=== PATIENT | male | born 1945 | race Caucasian/White ===

== ENCOUNTER 2024-09-10 14:42 | Outpatient (CLI) | payer MEDICARE, OTHER, SELFPAY ==
--- NOTE | 2024-09-10 15:00 | CRLHL7_ITS ---
For Patients: As a result of the Century Cures Act, medical imaging exams and procedure reports are released immediately into your electronic medical record. You may view this report before your referring provider. If you have questions, please contact your health care provider. INDICATION: Abnormal lesion at S1 as seen on MRI. Followup. COMPARISON: 08/30/2024. TECHNIQUE: Noncontrast CT lumbar spine. FINDINGS: Stable grade 1 anterolisthesis of L4 on L5 measures approximately 6 mm. Otherwise, normal alignment. No fractures. No vertebral body loss of height. No acute fractures. No vertebral body loss of height. No fractures visualized lower ribs. No sacral fractures. There is a poorly defined lucent lesion of the S1 sacral segment which correlates with the abnormal signal intensity lesion as seen on MRI. On the current exam, there is notable loss of the posterior cortex of S1. When compared to the previous MRI, there is apparent soft tissue component which appears to extend partially into the ventral epidural space. Overall, neoplasm/metastasis cannot be excluded. No other osseous lesions. T12-L1, L1-2: No spinal canal or neural foraminal narrowing. L2-3: Disc degeneration loss disc height. Diffuse disc bulge and endplate osteophytic ridging. Moderate narrowing of spinal canal. Mild narrowing of bilateral foramina. L3-4: Posterior disc bulge. Moderate narrowing of spinal canal. Mild narrowing of bilateral foramina. Most arthropathy. L4-5: Grade 1 anterolisthesis. Disc degeneration. Vacuum disc. Unroofed posted disc bulge. Severe narrowing of spinal canal. Oblique orientation about neural foramina with moderate to severe right and mild left neural foraminal narrowing. Severe facet arthropathy. L5-S1: Disc degeneration loss disc height. Vacuum disc. Diffuse disc bulge and endplate osteophytic ridging. No narrowing of spinal canal. No impingement of the traversing S1 nerve roots. Mild narrowing of bilateral foramina. Mild facet arthropathy. Degenerative changes of the SI joints. Scattered vascular calcifications. IMPRESSION: 1. Stable grade 1 anterolisthesis of L4 on L5. Otherwise normal alignment. No fractures. 2. Poorly defined lytic lucent lesion of the S1 sacral segment which correlates with the abnormal MRI findings. Notable loss of the posterior cortex of S1. On the previous MRI, there is a soft tissue component which appears to extend into the ventral epidural space. Overall, findings concerning for neoplasm/metastasis. Follow-up with MRI with IV gadolinium to complement the previous noncontrast MRI is recommended. 3. Lumbar spondylosis 4. Moderate narrowing of the spinal canal at the L2-3 and L3-4. 5. At L4-5, severe narrowing of the spinal canal. Moderate severe right neural foraminal narrowing. 6. At L5-S1, mild narrowing of the bilateral neural foramina Please note that all CT scans at this facility use dose modulation, iterative reconstruction, and/or weight-based dosing when appropriate to reduce radiation dose to as low as reasonably achievable. Dictated by Kevan Piedra MD @ 09/11/2024 3:50:33 PM (Electronically Signed)
--- OUTSIDE RECORDS SUMMARY | 2024-09-10 15:21 | XMS_ITS | Continuity of Care Document ---
Author Name [facility] Organization [facility] Care Team Providers Care Cad Detailer Name Role Phone [facility] Unavailable Unavailable Social History Combined list of available smoking, tobacco, and other social history from [facility] of Defense and Veterans Affairs facilities. Social History Type Response Date Comment Sourc e This section is an empty social history section. DoD
--- OUTSIDE RECORDS SUMMARY | 2024-09-10 15:21 | XMS_ITS | Continuity of Care Document ---
Author Name [facility] Organization [facility] Care Team Providers Care Service Worker Name Role Phone [facility] Unavailable Unavailable Social History Combined list of available smoking, tobacco, and other social history from Department of Defense and Veterans Affairs facilities. Social History Type Response Date Comment Sourc e This section is an empty social history section. DoD
--- OUTSIDE RECORDS SUMMARY | 2024-09-10 15:23 | XMS_ITS | Clinical Summary ---
Author Organization [facility] Address [address] [place] [id number] Care Team Providers Care Piano Case And Bench Assembler Name Role Phone Nate Figueroa MD Primary Care Provider Allergies Active Allergy Reactions Criticality Noted Date Comments Simvastatin Hepatic Dysfunction 09/19/2008 Medications ASPIRIN 325 MG TAB, DELAYED RELEASE 1 PO QD 0 09/02/19 07 Active atorvastatin (LIPITOR) 40 mg tabletIndications: Mixed hyperlipidemia Take 1 Tablet (40 mg) by mouth once daily. 90 Tablet 3 11/22/19 24 Active methylPREDNISolone 4 mg tabletIndications: Middle ear effusion, bilateral Take by mouth as instructed per packaging. 21 Tablet 05/29/19 25 Active predniSONE 20 mg tabletIndications: Lumbar radiculopathy Two tablets oral daily for 5 days. 10 Tablet 06/21/19 25 Active levothyroxine 137 mcg tabletIndications: Acquired hypothyroidism Take 1 Tablet (137 mcg) by mouth before breakfast. 90 Tablet 08/17/19 25 Active azelastine 137 mcg/actuation nasal sprayIndications:R hinitis, unspecified type Inhale 1 Clarkia into affected nostril(s) two times daily. 30 mL 08/17/19 25 Active levothyroxine (SYNTHROID) 137 mcg tabletIndications: Acquired hypothyroidism Take 1 Tablet (137 mcg) by mouth before breakfast. 90 Tablet 3 11/22/19 24 025 Discontin ued(Reord er (E-cancel not sent)) fluticasone (50 mcg per actuation) nasal solution (FLONASE)Indicatio ns:Dysfunction of both eustachian tubes Inhale 2 Sprays in both nostrils once daily. 16 g 05/07/19 25 025 Discontin ued(*Anyi ent states no longer taking) loratadine (CLARITIN) 10 mg tabletIndications: Congestion of both ears Take 1 Tablet (10 mg) by mouth once daily. 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 Patient has identified Specific Treatment Preferences: Yes Specific Treatment Preferences: a.) Code Status: CPR/Attempt Resuscitation Hypothyroidism 09/01/2006 Overview (08/31/2011): On replacement outpatient Prediabetes Resolved Problems Problem Noted Date Diagnosed Date Resolved Date Cellulitis 08/31/2011 12/09/2020 Other and unspecified hyperlipidemia 09/01/2006 08/31/2011 Encounters Date Type Department Care Team Description 09/06/2024 Transcribe Orders [facility] [address] [place] [address] Arnol Patel MD 09/01/2024 Telephone [facility] [address] [place] [address] Nate Figueroa MD Results 08/30/2024 10:15 AM CDT Ancillary Procedure [facility] [address] [place] [address] 08/30/2024 Travel 08/26/2024 Travel 08/16/2024 9:40 AM CDT Office Visit [facility] [address] [place] [address] Nate Figueroa MD Leg Pain/problem (Bilateral leg pain, radiates from lower back, completed physical therapy ); Ear Problem (Bilateral ear feels plug) 08/15/2024 Travel 07/23/2024 9:21 AM CDT - 07/23/2024 11:59 PM CDT Hospital Encounter [address] [address] Lyn Odom, Justin Trejo, PT 07/23/2024 Travel 07/16/2024 9:29 AM CDT - 07/16/2024 11:59 PM CDT Hospital Encounter [address] [address] Lyn Odom DO Vinar, Kaylin J, REPAIRER SCREEN CRUSHER 07/16/2024 Travel 07/09/2024 9:19 AM CDT - 07/09/2024 11:59 PM CDT Hospital Encounter [address] [address] Lyn Odom DO Vinar, Kaylin J, REPAIRER SCREEN CRUSHER 07/09/2024 Travel 07/04/2024 10:00 AM CDT Office Visit [address] [phone] Chidi Ceja MD Recheck (Middle ear effusion, bilateral /Conductive hearing loss, bilateral /) 07/04/2024 9:30 AM CDT Office Visit [address] [address] Keesha Velazquez AuD Hearing Problem (Tymps only) 07/04/2024 Travel 07/02/2024 9:15 AM CDT - 07/02/2024 11:59 PM CDT Hospital Encounter [facility] [address] [address] Lyn Odom DO Rein, Erik, PT 07/02/2024 Travel 06/20/2024 11:25 AM CDT Office Visit [facility] [address] [place] [address] Nate Figueroa MD Leg Pain/problem (Ongoing bilateral leg pain, discuss medication) 06/20/2024 Travel 06/19/2024 Refill [facility] [address] [place] [address] Dee Milian PA Refill Request (methylPREDNISolon e 4 mg tablet ) 06/18/2024 10:10 AM CDT - 06/18/2024 11:59 PM CDT Hospital Encounter [address] [address] Lyn Odom DO Rein, Erik, PT 06/18/2024 Travel 06/11/2024 10:04 AM CDT - 06/11/2024 11:59 PM CDT Hospital Encounter [address] [address] Lyn Odom DO Vinar, Kaylin J, REPAIRER SCREEN CRUSHER 06/11/2024 Travel from Last 3 Months Immunizations Immunization Administration Dates Next Due Influenza, High-dose Inactivated 01/08/2019,12/12,12/01/2015 Influenza, High-dose Quadriv alent Inactivated 12/09/2020,01/06/2020 Influenza, IIV3 (Age >=3 years) 12/11/19 15,12/24/2013,12/11/2012,2011,12/21/2010,12/21/2010,01/13/2010,1 Influenza,CCIIV4 PRESERV FREE 12/15/2016 Pneumococcal Conj 20-valent (Prevnar 20) 01/06/2023 Pneumococcal Poly,23-Valent (Pneumovax) 09/23/2011 Pneumococcal conj 13-Valent (Prevnar 13) 09/11/2014 Td (Age >=7 Years) 04/15/2003 Tdap 03/27/2012 Zoster (Zostavax-ZVL, live) 09/23/2011 Family History Medical History Relation Name Comments Cancer-prostate Brother 2 Heart Disease Mother Diabetes Neg. 1 Heart Disease Neg. 2 Cancer Sister 5 LUNG, at 6 8, smoker Cancer-colon No Family History Relation Name Status Comments Brother 1 Alive Brother 2 Alive Brother 3 (Age 58) stomach ca Brother 4 Father Mother Neg. 1 Neg. 2 Sister 1 Alive Sister 2 Alive Sister 3 Alive Sister 4 (Age 63) [facility], s moker Sister 5 Social History Tobacco Use Types Packs/Day Years Used Date Smoking Tobacco: Some Days Cigars Smokeless Tobacco: Never Tobacco Cessation:Ready to Q uit: No; Counseling Given: No Comments:cigars once weekly, Alcohol Use Standard Drinks/Week Comments Yes 0 (1 standard drink = 0.6 oz pur e alcohol) 2 drinks per week PHQ-2 Answer Date Recorded PHQ-2 TOTAL SCORE 0 01/06/2023 Social Connections Answer Date Recorded Do you often feel lonely or isolated from those around you? 0 11/22/2023 Financial Resource Strain Answer Date R ecorded Difficulty of Paying Living Expenses 3 11/22/2023 Difficulty of Paying Living Expenses Not on file 11/22/2023 Food Insecurity Answer Date Recorded Do you worry your food will run out before you are able to buy more? 1 11/22/2023 Transportation Needs Answer Date Record ed Does lack of transportation keep you from medica l appointments? 1 11/22/2023 Does lack of transportation keep you from work, meetings or getting things that you need? 1 11/22/2023 Housing Stability Answer Date Recorded What is your housing situation today? 1 11/22/2023 Utilities Answer Date Recorded Do you have trouble paying f or utilities (for example, heat, electricity, water, phone)? 1 11/22/2023 Sex and Gender Information Value Date Recorded Sex Assigned at Not on file Legal Sex Male 5:23 AM POLICE CLERK Gender Identity Not on file Sexual Orientation Not on file Obstetrics History Last Filed Vital Signs Vital Sign Reading Time Taken Comments Blood Pressure 136/91 08/16/2024 9:38 AM CDT Pulse 97 08/16/2024 9:38 AM CDT Temperature 37.5 C (99.5 F) 05/14/2024 9:42 AM POLICE CLERK Respiratory Rate 23 08/27/2022 10:1 2 AM CDT Oxygen Saturation 96% 08/16/2024 9:38 AM CDT Inhaled Oxygen Concentration - - Weight 95.2 kg (209 lb 12.8 oz) 08/16/2024 9:38 AM CDT Height 167.6 cm (5' 6) 11/22/2023 9:23 AM CDT Body Mass Index 33.86 11/22/2023 9:23 AM CDT Plan of Treatment Upcoming Encounters Date Type Department Care Team (Late st Contact Info) Description 09/19/2024 9:45 AM CDT Office Visit [facility] [address] [place] [address] Chidi Ceja MD [address] [facility] [address] [place] [address] 10/01/2024 10:00 AM CDT Office Visit [facility] [address] [place] [address] Arnol Patel MD [address] [place] [address] 11/22/2024 10:30 AM CDT Office Visit [facility] [address] [place] [address] Nate Figueroa MD [address] [place] [address] Health Maintenance Due Date Last Done Comments Zoster (shingles) series for age 50+ (2 of 3) 11/18/2011 09/23/2011 RSV vaccine for adults or (1 - 1-dose 75+ series) 2021 Tetanus booster 03/27/2022 03/27/2012, 04/15/2003 COVID-19 vaccine series ( season) 2023 01/14/2021, 06/04/2020, 05/06/2020 Medicare Wellness for age 65+ 01/07/2024 01/06/2023, 12/13/2021, 12/09/2020, Additional history exists Depression screening for age 12+ 01/08/2024 01/07/2023, 01/06/2023, 12/13/2021, Additional history exists Influenza Vaccine (#1) 2024 9, 01/04/2018, 12/15/2016, Additional history exists BMI (ht and wt on same day) for age 18+ 11/21/2024 11/22/2023, 01/06/2023, 12/13/2021, Additional history exists Hepatitis C screening for age 18-79 Completed 12/20/2016, 09/11/2008 Pneumococcal series for age 50+ Completed 01/06/2023, 09/11/2014, 09/23/2011 Hepatitis B series for 19+ Aged Out N o longer eligible based on patient's age to complete this topic Procedures Procedure Name Priority Date/Time Associated Diagnosis Comments MR SPINE LUMBAR WO Routine 08/30/2024 10 :46 AM CDT Neurogenic claudication ANTI HCV Routine 12/20/2016 9:32 AM CDT Need for hepatitis C screening test from Last 3 Months or Most Recently Relevant to Health Maintenance Results * MR SPINE LUMBAR WO (08/30/2024 10:46 AM CDT) Anatomical Region Laterality Modality Spine, LUMBAR SPINE Magnetic Res onance 09/01/2024 4:49 PM CDT Narrative 09/01/2024 4:49 PM CDT For Patients: As a result of the Century Cures Act, medical imaging exams and procedure reports are released immediately into your electronic medical record. You may view this report before your referring provider. If you have questions, please contact your health care provider. Indication: Neurogenic claudication Technique: Multiplanar, multisequence, MRI of the lumbar spine, obtained without contrast. Comparison: None Findings: Ill-defined lytic-appearing lesion involving the dorsal S1 body with mixed T2 signal, as well as T1/T2 hypointense, STIR hyperintense ventral epidural fullness, suspicious for extraosseous lesion extension. Preserved lumbar lordosis. Grade 1 anterolisthesis at L4-5. Multilevel Modic type 2 endplate signal changes. No other suspicious bone marrow lesion identified. Conus medullaris terminates at L1. Degenerative changes are present at the bilateral SI joints. T12-L1: Mild disc bulge, small central protrusion. No neural foraminal or spinal canal stenosis. L1-L2: Diffuse disc bulge, mild facet arthropathy. No neural foraminal stenosis. Mild-moderate spinal canal narrowing. L2-L3: Diffuse disc-osteophyte complex, facet arthropathy. Mild bilateral neural foraminal narrowing. Moderate spinal canal stenosis. L3-L4: Disc bulge, facet arthropathy, ligamentum flavum laxity. Mild right, [id number] left neural foraminal narrowing. Mild-moderate spinal canal narrowing. L4-L5: Diffuse right eccentric disc-osteophyte complex, advanced facet arthropathy, ligamentum flavum laxity. Moderate left, moderately severe right neural foraminal stenosis. Severe spinal canal stenosis with likely impingement of the descending bilateral L5 nerve roots. L5-S1: Diffuse disc-osteophyte complex, facet arthropathy. Mild left, moderate right neural foraminal stenosis. Ventral epidural fullness encroaching upon and potentially impinging the descending bilateral S1 nerve roots. Impression: 1. Ill-defined, lytic-appearing lesion involving the dorsal S1 body, with ventral epidural fullness suspicious for extraosseous lesion extension. Advise obtaining postcontrast MR images through this level, and potentially CT for further characterization. Clinical correlation advised. 2. Lumbar spondylosis with low-grade spondylolisthesis and Modic endplate changes as detailed. 3. At L2-L3, moderate spinal canal stenosis. 4. At L4-L5, severe spinal canal stenosis, moderately severe right and moderate left neural foraminal stenosis, with potential impingement of the right L4 and bilateral L5 nerve roots. 5. At L5-S1, moderate right neural foraminal stenosis, with ventral epidural fullness encroaching upon the descending bilateral S1 nerve roots. Dictated by Mica Veronica MD @ 09/01/2024 4:49:13 PM (Electronically Signed) Procedure Note Mica Veronica DO - 09/01/2024 For Patients: As a result of the Century Cures Act, medical imagingexams and procedure reports are released immediately into your electronicmedical record. You may view this report before your referring provider.If you have questions, please contact your health care provider. Indication: Neurogenic claudication Technique: Multiplanar, multisequence, MRI of the lumbar spine, obtained withoutcontrast. Comparison: None Findings: Ill-defined lytic-appearing lesion involving the dorsal S1 body with mixedT2 signal, as well as T1/T2 hypointense, STIR hyperintense ventralepidural fullness, suspicious for extraosseous lesion extension. Preserved lumbar lordosis. Grade 1 anterolisthesis at L4-5. MultilevelModic type 2 endplate signal changes. No other suspicious bone marrowlesion identified. Conus medullaris terminates at L1. Degenerative changesare present at the bilateral SI joints. T12-L1: Mild disc bulge, small central protrusion. No neural foraminal orspinal canal stenosis. L1-L2: Diffuse disc bulge, mild facet arthropathy. No neural foraminalstenosis. Mild-moderate spinal canal narrowing. L2-L3: Diffuse disc-osteophyte complex, facet arthropathy. Mild bilateralneural foraminal narrowing. Moderate spinal canal stenosis. L3-L4: Disc bulge, facet arthropathy, ligamentum flavum laxity. Mildright, [id number] left neural foraminal narrowing. Mild-moderatespinal canal narrowing. L4-L5: Diffuse right eccentric disc-osteophyte complex, advanced facetarthropathy, ligamentum flavum laxity. Moderate left, moderately severeright neural foraminal stenosis. Severe spinal canal stenosis with likelyimpingement of the descending bilateral L5 nerve roots. L5-S1: Diffuse disc-osteophyte complex, facet arthropathy. Mild left,moderate right neural foraminal stenosis. Ventral epidural fullnessencroaching upon and potentially impinging the descending bilateral [id number] roots. Impression: 1. Ill-defined, lytic-appearing lesion involving the dorsal S1 body, withventral epidural fullness suspicious for extraosseous lesion extension.Advise obtaining postcontrast MR images through this level, andpotentially CT for further characterization. Clinical correlation advised. 2. Lumbar spondylosis with low-grade spondylolisthesis and Modic endplatechanges as detailed. 3. At L2-L3, moderate spinal canal stenosis. 4. At L4-L5, severe spinal canal stenosis, moderately severe right andmoderate left neural foraminal stenosis, with potential impingement of theright L4 and bilateral L5 nerve roots. 5. At L5-S1, moderate right neural foraminal stenosis, with ventralepidural fullness encroaching upon the descending bilateral S1 nerveroots. Dictated by Mica Veronica MD @ 09/01/2024 4:49:13 PM (Electronically Signed) us Nate Figueroa MD MR Final Result * ANTI HCV (12/20/2016 9:32 AM CDT) HEPATITIS C ANTIBODY Non-Reacti ve Non-Reacti ve 12/20/2016 5:17 PM CDT [facility] Blood BLOOD SPECIMEN / Unknown Venipuncture / Unknown 12/20/2016 9:32 AM CDT 12/20/2016 9:32 AM CDT Narrative [facility] - 12/20/2016 5:17 PM CDT Antibodies to HCV not detected; does not exclude the possibility of exposure to HCV. us Nate Figueroa MD SEND OUTS Final Result [facility] [address] [place] [address], [place] from Last 3 Months or Most Recently Relevant to Health Maintenance Insurance MEDICARE PART A HB ONLY FOR LIFE MEDICARE PB ONLY MEDICARE PART B HB ONLY * Guarantor: [employer]IL[employer] ONLY Account Type Relation to Patient Date of Phone Billing Address [facility] [employer] [address] [facility] [place] [id number] Advance Directives Documents on File Type Date Recorded Patient Clinical Documentation Developer Expl anation Healthcare Directive 09/07/2011 12:01 PM * Full Code (Latest Code Status on File) Date Activated Date Inactivated Comments 08/31/2011 4:47 PM 09/02/2011 10:12 PM Care Teams Piano Case And Bench Assembler Relationship Specialty Start Date End Date Nate Figueroa MD [address] [place] [address] PCP - General 12/23/08
--- OUTSIDE RECORDS SUMMARY | 2024-09-11 00:18 | XMS_ITS | Clinical Summary ---
Author Organization [facility] Address [address] [place] [id number] Care Team Providers Care Wet Crown Blocking Operator Name Role Phone Nate Figueroa MD Primary [...] nasal sprayIndications:R hinitis, unspecified type Inhale 1 [place] into affected nostril(s) two times daily. 30 [...] Health Care Agent(s): Primary Health Care Agent: Berencie Relationship: Secondary Health Care Agent: Relationship: Phone: [...] Department Care Team Description 09/06/2024 Transcribe Orders [facility] [address] [place] [address] Arnol Patel MD 09/01/2024 Telephone [facility] [address] [place] [address] Nate Figueroa MD Results 08/30/2024 10:15 AM CDT Ancillary Procedure [facility] [address] [place] [address] 08/30/2024 Travel 08/26/2024 Travel 08/16/2024 9:40 AM CDT Office Visit [facility] [address] [place] [address] Nate Figueroa MD Leg Pain/problem (Bilateral leg pain, radiates from lower back, completed physical therapy ); Ear Problem (Bilateral ear feels plug) 08/15/2024 Travel 07/23/2024 9:21 AM CDT - 07/23/2024 11:59 PM CDT Hospital Encounter [address] [address] Lyn Odom, Justin Trejo, PT 07/23/2024 Travel 07/16/2024 9:29 AM CDT - 07/16/2024 11:59 PM CDT Hospital Encounter [address] [address] Lyn Odom DO Vinar, Kaylin J, HOTEL MAINTENANCE ENGINEER 07/16/2024 Travel 07/09/2024 9:19 AM CDT - 07/09/2024 11:59 PM CDT Hospital Encounter [address] [address] Lyn Odom DO Vinar, Kaylin J, HOTEL MAINTENANCE ENGINEER 07/09/2024 Travel 07/04/2024 10:00 AM CDT Office Visit [address] [address] Chidi Ceja MD Recheck (Middle ear effusion, bilateral /Conductive hearing loss, bilateral /) 07/04/2024 9:30 AM CDT Office Visit [address] [address] Keesha Velazquez AuD Hearing Problem (Tymps only) 07/04/2024 Travel 07/02/2024 9:15 AM CDT - 07/02/2024 11:59 PM CDT Hospital Encounter [facility] [address] [address] Lyn Odom DO Rein, Erik, PT 07/02/2024 Travel 06/20/2024 11:25 AM CDT Office Visit [facility] [address] [place] [address] Nate Figueroa MD Leg Pain/problem (Ongoing bilateral leg pain, discuss medication) 06/20/2024 Travel 06/19/2024 Refill [facility] [address] [place] [address] Dee Milian PA Refill Request (methylPREDNISolon e 4 mg tablet ) 06/18/2024 10:10 AM CDT - 06/18/2024 11:59 PM CDT Hospital Encounter [facility] [address] [address] Lyn Odom DO Rein, Erik, PT 06/18/2024 Travel from Last 3 Months Immunizations Immunization [...] Sister 3 Alive Sister 4 (Age 63) lun ca, s moker Sister 5 Social History [...] on file 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 Gender Identity Not on file Sexual Orientation Not on file Obstetrics History Last Filed Vital Signs Vital Sign Reading Time Taken Comments Blood Pressure 136/91 08/16/2024 9:38 AM CDT Pulse 97 08/16/2024 9:38 AM CDT Temperature 37.5 C (99.5 F) 05/14/2024 9:42 AM MINE MOTOR OPERATOR Respiratory Rate 23 08/27/2022 10:1 2 AM [...] Description 09/19/2024 9:45 AM CDT Office Visit [facility] [address] [place] [address] Chidi Ceja MD [address] [facility] [address] [place] [address] 10/01/2024 10:00 AM CDT Office Visit [facility] at [facility] [address] [place] [address] Arnol Patel MD [address] [place] [address] 11/22/2024 10:30 AM CDT Office Visit [facility] [address] [place] [address] Nate Figueroa MD [address] [place] [address] Health Maintenance Due Date Last Done Comments [...] For Patients: As a result of the Cures Act, medical imaging exams and procedure [...] facet arthropathy, ligamentum flavum laxity. Mild right, [id number]-cd-[id number] left neural foraminal narrowing. Mild-moderate spinal canal [...] 4:49:13 PM (Electronically Signed) Procedure Note Mica Veronica, - 09/01/2024 For Patients: As a result [...] bulge, facet arthropathy, ligamentum flavum laxity. Mildright, [id number]-xz-[id number] left neural foraminal narrowing. Mild-moderatespinal canal narrowing. L4-L5: Diffuse right eccentric disc-osteophyte complex, advanced facetarthropathy, ligamentum flavum laxity. Moderate left, moderately severeright neural foraminal stenosis. Severe spinal canal stenosis with likelyimpingement of the descending bilateral L5 nerve roots. L5-S1: Diffuse disc-osteophyte complex, facet arthropathy. Mild left,moderate right neural foraminal stenosis. Ventral epidural fullnessencroaching upon and potentially impinging the descending bilateral P3pddxf roots. Impression: 1. Ill-defined, lytic-appearing lesion involving [...] ve Non-Reacti ve 12/20/2016 5:17 PM CDT [facility] Blood BLOOD SPECIMEN / Unknown Venipuncture / Unknown 12/20/2016 9:32 AM CDT 12/20/2016 9:32 AM CDT Narrative [facility] - 12/20/2016 5:17 PM CDT Antibodies to HCV not detected; does not exclude the possibility of exposure to HCV. us Nate Figueroa MD SEND OUTS Final Result [facility] [address] [place] [address], [place] from Last 3 Months or Most Recently Relevant to Health Maintenance Insurance MEDICARE PART A HB ONLY FOR [employer] Subscriber Plan / Payer (Ef fective 2011-Present) Name:Refugio Sierra Relation to Subscriber:Self Name:Refugio Sierra Payer ID:Not on file Group ID:NONE Type:Not on file Address: [address] [place] [id number] MEDICARE [place] ONLY MEDICARE PART B HB ONLY * Guarantor: [employer]HEIL[employer] ONLY Account Type Relation to Patient Date of Phone Billing Address [facility] [employer]/Primary Data 03/13/2000 [id number] [id number] Advance Directives Documents on File Type Date Recorded Patient Welder Pipe Making Expl anation Healthcare Directive 09/07/2011 12:01 PM * Full Code (Latest Code Status on File) Date Activated Date Inactivated Comments 08/31/2011 4:47 PM 09/02/2011 10:12 PM Care Teams Wet Crown Blocking Operator Relationship Specialty Start Date End Date Nate Figueroa MD [address] [place] [address] PCP - General 12/23/08
== END 2024-09-10 14:43 | disposition home or self-care (01) ==
PROVIDERS: PCP Family Medicine; Visit Provider Physician Assistant
DX: M54.16 Radiculopathy, lumbar region (principal); M47.896 Other spondylosis, lumbar region; M51.26 Other intervertebral disc displacement, lumbar region; M51.27 Other intervertebral disc displacement, lumbosacral region
CPT/HCPCS: 72131

== ENCOUNTER 2024-10-01 09:18 | Outpatient (CLI) | payer MEDICARE, OTHER, SELFPAY | END 2024-10-01 09:19 | disposition home or self-care (01) | PROVIDERS: PCP Family Medicine; Visit Provider Family Medicine | DX: M54.16 Radiculopathy, lumbar region (principal); M48.062 Spinal stenosis, lumbar region with neurogenic claudication | CPT/HCPCS: 64483; Q9966 ==

== ENCOUNTER 2024-11-26 10:03 | Outpatient (CLI) | payer MEDICARE, OTHER, SELFPAY | END 2024-11-26 10:04 | disposition home or self-care (01) | LOC: INJ CL 10:03 | PROVIDERS: PCP Family Medicine; Visit Provider Family Medicine | DX: M54.16 Radiculopathy, lumbar region (principal); M51.369 Other intervertebral disc degeneration, lumbar region without mention of lumbar back pain or lower extremity pain | CPT/HCPCS: 64483; J1100; Q9966 ==